=== PATIENT | female | born 1980 | race Caucasian/White ===

== ENCOUNTER 2024-08-25 06:09 | Observation (INO) ==
--- NOTE | 2024-08-09 13:00 | PAT Medication Instructions ---
Medication Instructions Date of Service August 09, 2024 Home Medications Probiotic 1 cap PO QAM ascorbic acid (vitamin C) 500 mg tablet (Vitamin C) 500 mg PO QAM fexofenadine 180 mg tablet 180 mg PO QAM montelukast 10 mg tablet (Singulair) 10 mg PO HS pantoprazole 40 mg tablet,delayed release (Protonix) 40 mg PO HS vitamin B complex 1 tab PO QAM DO NOT take the morning of surgery Probiotic 1 cap PO QAM ascorbic acid (vitamin C) 500 mg tablet (Vitamin C) 500 mg PO QAM fexofenadine 180 mg tablet 180 mg PO QAM vitamin B complex 1 tab PO QAM NOTHING TO EAT OR DRINK AFTER MIDNIGHT Take evening before surgery montelukast 10 mg tablet (Singulair) 10 mg PO HS pantoprazole 40 mg tablet,delayed release (Protonix) 40 mg PO HS Other Notes If you have any questions please call us at [phone] or [phone] or [phone] or [phone]
--- NOTE | 2024-08-11 11:00 | Anesthesiology Consultation ---
Date of Service August 11, 2024 Assessment & Plan (1) Encounter for pre-operative examination: - scop patch ordered for DOS. Chart Review Chart Review: Acceptable Risk for Surgery and Patient seen in Pre Admission Testing Teaching & Discussion Pre-Anesthesia Teaching/Discussion Notes: Instructed NPO after midnight before surgery, except medications with 15 cc of water. Medication instructions provided according to the PAT guidelines. History Surgery Operation Date: 08/25/24 12:05 Proposed Procedures p Anterior Cervical Discectomy and Fusion C5-C7, with Spinal Cord Monitoring - Rivera Patino DO Height/Weight Height: 5 ft 10 in Weight: 69.1 kg Allergies Allergy/AdvReac Type Severity Reaction Status Date / Time No Known Allergies Allergy Verified 08/08/24 10:01 Medications Home Medications Medication Instructions Recorded Confirmed Last Taken Probiotic 1 cap PO QAM 08/08/24 08/08/24 Unknown ascorbic acid (vitamin C) 500 mg 500 mg PO QAM 08/08/24 08/08/24 Unknown tablet (Vitamin C) fexofenadine 180 mg tablet 180 mg PO QAM 08/08/24 08/08/24 Unknown montelukast 10 mg tablet 10 mg PO HS 08/08/24 08/08/24 Unknown (Singulair) pantoprazole 40 mg tablet,delayed 40 mg PO HS 08/08/24 08/08/24 Unknown release (Protonix) vitamin B complex 1 tab PO QAM 08/08/24 08/08/24 Unknown methocarbamol 500 mg tablet 500 mg PO PRN Pain 08/11/24 Unknown Additional Notes: Patient was advised she can continue methocarbamol prn. She denied any additional questions, concerns or medications. Past Medical History Medical History (Updated 08/11/24 @ 11:09 by Yumiko Singh PA-C) Environmental and seasonal allergies GERD (gastroesophageal reflux disease) controlled, stable per pt History of anemia no current issues Nausea and vomiting after administration of anesthetic agent has had scop patch and IV medication with good benefit, denies adverse effects Patient denies h/o stroke, seizures, heart attack, heart failure, DM, HTN, blood clots/DVTs or blood transfusions. Exercise / Class Metabolic Activity II 4-5 Yardwork/Stairs/Walk up hill (denies chest discomfort or shortness of breath with one flight of stairs) Past Surgical History Surgical History History of endometrial ablation History of rhinoplasty History of tonsillectomy and adenoidectomy Hx of bilateral salpingectomy [place] teeth removed Past Anesthesia History No Hx of Anesthesia Complications and No Family Hx of Anesthesia Complications History of PONV History of PONV (has scop patch with IV medication with good management) and Hx of Motion Sickness Social History Smoking Status: Former smoker Do You Dip or Chew Tobacco: No Smoking End Date: 20 years ago, only occasional/socially Hx Alcohol Use: Yes Alcohol type: beer and other alcohol intake frequency: a few times a month Hx Substance Use: No substance use type: does not use Review of Systems Patient denies chest pain, shortness of breath, dyspnea on exertion, snoring, witnessed apneas, fever, chills, cough, wheezing, or palpitations. Physical Exam Vital Signs Vitals BP 135/92 P 69 TEMP 98.1 SP02 98% on RA RESP 18 Physical Patient resting comfortably in chair in no acute distress, alert and oriented, responding appropriately throughout visit Full cervical extension range of motion without pain TMD 3.5 finger breadths Mallampati Score 2 Dentition: intact, denies chipped or loose teeth, caps/crowns, implants or bridges Lungs: normal respiratory effort. Good air movement, clear throughout to auscultation, no adventitious breath sounds Cardiac: regular rate and rhythm, no murmurs noted Carotid arteries: negative bruit bilat Lab Results Anesthesia Preop Results Results Anesthesia Widget: WBC 4.53 K/ul (4.8-10.8) L 08/11/24 Hgb 13.4 g/dl (12.0-16.0) 08/11/24 Hct 39.7 % (37.0-47.0) 08/11/24 Plt 277 K/uL (130-400) 08/11/24 Na 136 mmol/L (136-145) 08/11/24 K 4.0 mmol/L (3.5-5.1) 08/11/24 Cl 103 mmol/L (98-107) 08/11/24 CO2 28 mmol/L (21-32) 08/11/24 BUN 9 mg/dl (6-23) 08/11/24 Creat 0.84 mg/dl (0.6-1.2) 08/11/24 Glucose Level 91 mg/dl (70-99(Fasting)) 08/11/24 PT 10.6 Seconds (9.0-12.0) 08/11/24 PTT 28 Seconds (21-31) 08/11/24 INR 1.0 (0.9-1.1) 08/11/24 Urine Color Yellow 08/11/24 Urine Appearance Clear (Clear) 08/11/24 Urine pH 6.5 (4.5-7.5) 08/11/24 Urine Specific [place] 1.011 (1.000-1.030) 08/11/24 Urine Protein Negative (Negative) 08/11/24 Urine Glucose (UA) Negative (Negative) 08/11/24 Urine Ketones Negative (Negative) 08/11/24 Urine Blood 1+ (Negative) H 08/11/24 Urine Nitrite Negative (Negative) 08/11/24 Urine Bilirubin Negative (Negative) 08/11/24 Urine Urobilinogen Negative (Negative) 08/11/24 Urine Leukocyte Esterase Negative (Negative) 08/11/24 Urine WBC (Auto) 0-5 /hpf (0-5) 08/11/24 Urine RBC (Auto) 3-5 /hpf (0-2) H 08/11/24 Urine Hyaline Casts (Auto) 0-2 /lpf (0-2) 08/11/24 Urine Epithelial Cells (Auto) 0-2 /hpf (0-2) 08/11/24 Urine Bacteria (Auto) 1+ (None Seen) H 08/11/24 Blood Type B Positive 08/11/24 Antibody Screen NEGATIVE 08/11/24 Testing Laboratory Results Surgeon's office made aware of abnormal UA. Electrocardiogram Date: 08/11/24 Sinus rhythm with short NE, rate 69 bpm Chest X-Ray Date: 08/11/24 No acute process.
[2024-08-25] MEDS ORDERED: ROCURONIUM BROMIDE 10 MG/ML 5 ML VIAL IV ONE (06:56)
[2024-08-25] MEDS ORDERED: ONDANSETRON INJ 2 MG/ML 2 ML VIAL ONE (06:56)
[2024-08-25] MEDS ORDERED: LIDOCAINE 2% 2 ML VIAL/AMP(20MG/ML) INFIL ONE (06:56)
[2024-08-25] MEDS ORDERED: DEXAMETHASONE SOD INJ 4 MG/ML VIAL ONE (06:56)
[2024-08-25] MEDS ORDERED: PROPOFOL IV EMULSION 10 MG/ML 100 ML VIAL IV ONE (06:56)
[2024-08-25] MEDS ORDERED: KETOROLAC 30 MG/ML VIAL ONE (06:56)
[2024-08-25] MEDS ORDERED: fentaNYL citrate PF 100 MCG/2 ML VIAL ONE (06:56)
[2024-08-25] MEDS ORDERED: SUGAMMADEX SODIUM 200 MG/2 ML VIAL IV ONE (06:56)
[2024-08-25] MEDS ORDERED: MIDAZOLAM HCL 1 MG/ML 2ML VIAL ONE (06:57)
[2024-08-25] MEDS ORDERED: PROPOFOL IV EMULSION 10 MG/ML 20 ML VIAL IV ONE ×2 (06:58→08:37)
[2024-08-25] MEDS ORDERED: ePHEDrine sulfate 50 MG/ML AMP IV PRN (07:24)
[2024-08-25] MEDS ORDERED: ATROPINE SULFATE 0.1 MG/ML 10ML SYR IV PRN (07:24)
[2024-08-25] MEDS: GABAPENTIN 900 MG DOSE PO SCH (07:26)
[2024-08-25] MEDS: LR 60ML/HR IV SCH (07:26)
[2024-08-25] MEDS: LR 15ML/HR IV SCH (07:26)
[2024-08-25] MEDS: ACETAMINOPHEN 500 MG TAB PO SCH (07:27)
[2024-08-25] MEDS: CeleBREX 200 MG CAP PO SCH (07:27)
[2024-08-25] MEDS: SCOPOLAMINE 1 MG/72 HR TDSY PATCH TD ONE (07:33)
--- NOTE | 2024-08-25 07:44 | History & Physical Bridge Note ---
Date of Service August 25, 2024 History & Physical Bridge Note I have examined the patient, reviewed the History & Physical and in the interval since the performance of the History & Physical I have noted the following changes of clinical significance: no changes noted
--- NOTE | 2024-08-25 07:46 | History & Physical Report ---
Date of Service August 25, 2024 Assessment & Plan (1) Herniation of cervical intervertebral disc with radiculopathy: Plan: Anterior cervical discectomy and fusion C5-C7 History of Present Illness Chief Complaint: Neck and arm pain Primary Care Provider: Anya Rosas DO This is a 44-year-old female presents for chronic persistent neck and arm pain a failed course of nonoperative care she is here for surgical intervention. Allergies Allergy/AdvReac Type Severity Reaction Status Date / Time No Known Allergies Allergy Verified 08/25/24 06:52 Home Medications Medication Instructions Recorded Confirmed Type Probiotic 1 cap PO QAM 08/08/24 08/25/24 History ascorbic acid (vitamin C) 500 mg 500 mg PO QAM 08/08/24 08/25/24 History tablet (Vitamin C) fexofenadine 180 mg tablet 180 mg PO QAM 08/08/24 08/25/24 History montelukast 10 mg tablet 10 mg PO HS 08/08/24 08/25/24 History (Singulair) pantoprazole 40 mg tablet,delayed 40 mg PO HS 08/08/24 08/25/24 History release (Protonix) vitamin B complex 1 tab PO QAM 08/08/24 08/25/24 History methocarbamol 500 mg tablet 500 mg PO DAILY PRN Pain 08/11/24 08/25/24 History cholecalciferol (vitamin D3) 125 125 mcg PO DAILY 08/25/24 08/25/24 History mcg (5,000 unit) tablet (Vitamin D3) Past Med/Surg History Problem List (Updated 08/25/24 @ 07:46 by Rivera Patino DO) Herniation of cervical intervertebral disc with radiculopathy Encounter for pre-operative examination Medical History (Updated 08/25/24 @ 07:46 by Rivera Patino DO) Environmental and seasonal allergies Nausea and vomiting after administration of anesthetic agent has had scop patch and IV medication with good benefit, denies adverse effects History of anemia no current issues GERD (gastroesophageal reflux disease) controlled, stable per pt Surgical History History of endometrial ablation Hx of bilateral salpingectomy History of rhinoplasty [place] teeth removed History of tonsillectomy and adenoidectomy Social History Smoking Status: Former smoker Smoking End Date: 20 years ago, only occasional/socially; Second Hand Exposure: No; Do You Dip or Chew Tobacco: No; Tobacco Cessation Education Requested by Patient: No Hx Alcohol Use: Yes Alcohol type: beer and other Hx Substance Use: No Preferred Language: French Communication Ability: Effective Client Services Administrator Required: No Beliefs That Will Affect Care: None Current Living Situation: Spouse and Family Other Information That Helps Us Care for You: No Feels Safe at Home: Yes Safety Concerns: Feels Safe At This Time Assistive Devices: Glasses Assistive Devices Comment: reading glasses prn Physical Exam Physical Exam: Patient is alert and oriented Heart regular in rhythm Lungs clear Results & Data Results & Data Vital Signs (Past 12 Hours) Vital Signs Temp Pulse Resp BP Pulse Ox O2 Del Method 08/25/24 06:56 36.6 C 80 18 151/97 H 98 Room Air
[2024-08-25] MEDS: ceFAZolin 2000MG 2,000 MG/15 ML SYR IV SCH (07:55)
[2024-08-25] MEDS: FLOSEAL HEMOSTATIC MATRIX 10ML TOP ONE (09:13)
[2024-08-25] MEDS: ceFAZolin 330 MG/ML 1 GM VIAL ONE (09:15)
--- NOTE | 2024-08-25 09:23 | Operative Report ---
Post Operative Report Pre & Post Diagnosis Operation Date: 08/25/24 07:45 Pre-Op Diagnosis: Herniation of cervical intervertebral disc with radiculopathy Post-Op Diagnosis: Herniation of cervical intervertebral disc with radiculopathy I identified the patient and participated in the time-out.: Yes Procedure Operation Date: 08/25/24 07:45 Actual Procedures #1 anterior cervical discectomy with bilateral foraminotomies C5-C6 C6-C7. #2 anterior cervical arthrodesis C5-C6 C6-C7. #3 placement of Spira 7 mm cage at C5-C6 and 9 mm cage at C6-C7 both filled with Oxyzyme bone graft. #4 placement of the Z plate and screws from C5 to see 7. Surgeon Rivera Patino, DO Call Center Assistant Malik Lamas Estimated Blood Loss 10 Findings Consistent with Post-Op Diagnosis Specimens None Indications This is a 44-year-old female with presents publish diagnosis of the failing course of nonoperative care is here for surgical invention. Description of Procedure Patient was met with identified informed consent obtained. Patient was then taken to the operative suite underwent intubation placed in supine position on the Bret table the head [place] hogshead wrecker. All bony prominences well- padded eyes inspected to ensure no external pressure placed upon them. This point the anterior cervical spine was prepped and draped no sterile fashion. The assistance of fluoroscopy identified the C6 vertebral body and a transverse incision was placed on the right anterior aspect of the cervical spine overlying the region. Blunt dissection with assistance of bipolar electrocautery was performed down to and exposing the anterior cervical spine from C5-C7. Self- retaining tractors placed. Then formed a complete discectomy of C5-C6 out to the uncovertebral notch bilaterally. [place] distractor pins utilized to assist in visualization. Removed all posterior annular fibers longitudinal limit bilateral foraminotomies performed. Endplates burred to subcortical bleeding bone and a 7 mm spiral cage filled with os design bone graft tapped in position the distracting apparatus was removed and I proceeded to C6-C7. Again complete discectomy performed up to the uncovertebral was bilaterally. [place] distracting pins again utilized. Removed all posterior annular fibers longitudinal ligament bilateral foraminotomies performed. Endplates burred to subcortical bleeding bone and 9 mm spiral cage filled with os designed tapped in position. Distracting apparatus was removed and a Z plate applied from C5-C7 with fluoroscopic visualization. The incision was then copiously irrigated explored to ensure no damage to surrounding structures remaining bleeding. 10 round DENISE drain inserted. The incision was then closed with 2 Vicryl in the fascia 4 Monocryl for final skin closure. Steri-Strips sterile dressing placed. Patient waken taken PACU stable condition. Please note spinal cord monitoring was utilized at the procedure no changes noted. Malik Lamas was present out the entire surgery and while the patient positioning complex portion of the surgery and final skin closure. Im ordering 10 grams of Triple [place] Collagen Powder ([employer] A6010) to treat an incision wound that was caused by a spine procedure. The incision is approximately 2 cm(W) x 4 cm(L) into the joint (D) in size and is a full thickness wound. Triple [place] collagen comes in 1 gram packets so 10 packets were ordered. Given the size of the wound, with light to moderate exudate I chose to order a 10 day supply. The patient will be provided instructions for proper application of the collagen wound kit. The patient will be asked to apply the collagen powder daily and then cover it with sterile dress ings dispensed. Collagen was selected as I expect the collagen to attract monocytes and fibroblasts, act as a sacrificial substrate for MMPs, and ultimately proved a matrix for tissue and vessel growth. The collagen will act as a primary dressing in this scenario. It is medically necessary for proper healing of these wounds to improve bioavailability and contact with each wound surface, this is also to help prevent infection of wounds and promote healing ultimately leading to a better healing outcome and limit the risk of infection. I attest to the content of the Intraoperative Record and any orders documented therein. Any exceptions are noted below.
[2024-08-25] MEDS: HYDROmorphone INJ 2 MG/ML SYR/VIAL IV PRN (09:50)
--- NOTE | 2024-08-25 10:30 | Fluoroscopy Report ---
FL cervical 2-3V CLINICAL HISTORY: C5-C7 ACDF COMPARISON STUDY: None FLUOROSCOPY TIME: 13.2 seconds FLUOROSCOPY IMAGES: 2 EXPOSURE DOSE: 0.91 mGy FINDINGS: Anterior plate and screw fusion with discectomy at C5-C7. The hardware appears intact. Endo tracheal tube with surgical drainage catheter. No unexpected opaque foreign bodies identified. IMPRESSION: Fluoroscopic assistance as above. ACT 112: Negative or not required by law. Electronically signed by: Antonio Leija M.D. 08/25/2024 10:29 AM
--- NOTE | 2024-08-25 11:11 | Anesthesiology Progress Note ---
Date of Service August 25, 2024 Anesthesia Post Procedure Vital Signs Vital Signs: Temp Pulse Pulse Resp BP BP Pulse Ox 08/25/24 10:50 36.8 C 95 H 16 126/68 96 08/25/24 10:40 78 21 117/75 95 08/25/24 10:30 78 15 121/81 95 08/25/24 10:20 78 17 125/84 95 08/25/24 10:10 81 16 125/85 96 08/25/24 10:00 85 20 135/82 100 08/25/24 09:50 89 23 138/95 100 08/25/24 09:41 36.0 C L 93 H 13 128/88 100 08/25/24 06:56 36.6 C 80 18 151/97 H 98 O2 Del Method O2 Flow Rate 08/25/24 10:50 Room Air 08/25/24 10:40 Room Air 08/25/24 10:30 Room Air 08/25/24 10:20 Room Air 08/25/24 10:10 Room Air 08/25/24 10:00 Oxymask 6 08/25/24 09:50 Oxymask 6 08/25/24 09:41 Oxymask 6 08/25/24 06:56 Room Air Pain Intensity Left Neck: Pain Intensity: 4 Neck: Pain Intensity: 2 Transfer of Care Handoff Completed per policy Notes Mental Status: alert / awake / arousable Patient Amnestic to Procedure: Yes Nausea / Vomiting: adequately controlled Pain: adequately controlled Airway Patency, RR, SpO2: stable & adequate BP & HR: stable & adequate Hydration State: stable & adequate Anesthetic Complications: no major complications apparent
[2024-08-25] MEDS ORDERED: LORazepam 2 MG/1 ML VIAL IV PRN (12:23)
[2024-08-25] MEDS ORDERED: traMADol HCL 50 MG TABLET PO PRN (12:23)
[2024-08-25] MEDS ORDERED: DO NOT ADMINISTER FLU VACCINE PRN (12:23)
[2024-08-25] MEDS ORDERED: PROMETHAZINE 12.5 MG/50.5 ML BAG IV PRN (12:23)
[2024-08-25] MEDS ORDERED: NALOXONE HCL 0.4 MG/1 ML VIAL/CARP IV PRN (12:23)
[2024-08-25] MEDS ORDERED: ONDANSETRON INJ 2 MG/ML 2 ML VIAL IV PRN (12:23)
[2024-08-25] MEDS ORDERED: DO NOT ADMINISTER PNEUMOCOCCAL VACCINE PRN (12:23)
[2024-08-25] MEDS ORDERED: bisacodyL 10 MG SUPP PR PRN (12:23)
[2024-08-25] MEDS ORDERED: diphenhydrAMINE Capsule 25 MG CAP PO PRN (12:23)
[2024-08-25] MEDS ORDERED: METOCLOPRAMIDE HCL INJ 5 MG/ML 2 ML VIAL IV PRN (12:23)
[2024-08-25] MEDS ORDERED: hydrOXYzine HCl 25 MG TAB PO PRN (12:23)
[2024-08-25] MEDS ORDERED: FAMOTIDINE 20 MG TAB PO PRN (12:23)
[2024-08-25] MEDS ORDERED: ACETAMINOPHEN 500 MG TAB PO PRN (12:23)
[2024-08-25] MEDS ORDERED: SOD PHOSPHATE/SOD BIPHOSPHATE ENEMA 132 ML BTL PR PRN (12:23)
[2024-08-25] MEDS ORDERED: ONDANSETRON 4 MG OD TAB PO PRN (12:23)
[2024-08-25] MEDS ORDERED: dexAMETHasone 8 MG in SYRINGE 0 ML IV PRN (12:23)
[2024-08-25] MEDS ORDERED: ALUMINUM/MAGNESIUM SUSP 30 ML UDC PO PRN (12:23)
[2024-08-25] MEDS ORDERED: RACEPINEPHRINE 2.25% NEBU SOLN 0.5 ML VIAL INH PRN (12:23)
[2024-08-25] MEDS ORDERED: MAGNESIUM HYDROXIDE SUSP 30 ML UDC PO PRN (12:23)
[2024-08-25] MEDS: LACTATED RINGER'S 1,000 ML IV SCH (13:23)
[2024-08-25] MEDS: LORazepam 0.5 MG TAB PO PRN (15:08)
[2024-08-25] MEDS: HYDROmorphone INJ 0.5 MG/0.5 ML SYR IV PRN (16:25)
[2024-08-25] MEDS: ceFAZolin 1000MG 1,000 MG/7.5 ML SYR IV SCH (17:32)
[2024-08-25] MEDS: HYDROmorphone INJ 1 MG/ML SYRINGE IV PRN (19:31)
[2024-08-25] MEDS: PANTOprazole 40 MG TAB PO SCH (20:11)
[2024-08-25] MEDS: DOCUSATE SODIUM/SENNA 50/8.6MG TAB PO SCH (20:11)
[2024-08-25] MEDS: MONTELUKAST SODIUM 10 MG TABLET PO SCH (20:11)
[2024-08-25] MEDS: oxyCODONE HCL IR 5 MG TAB (IMMEDIATE RELEASE) PO PRN (21:26)
[2024-08-25] MEDS ORDERED: Nursing to Pharmacy Communication SCH (21:45)
[2024-08-26] MEDS: ACETAMINOPHEN 1,000 MG/100 ML VIAL IV PRN (00:16)
[2024-08-26] MEDS: POLYETHYLENE (MIRALAX) 17 GM PACK PO SCH (05:54)
[2024-08-26] MEDS: CHOLECALCIFEROL 125 MCG (5,000 UNITS) TAB PO SCH (08:00)
[2024-08-26] MEDS: FEXOFENADINE HCL 180 MG TAB PO SCH (08:00)
[2024-08-26] MEDS: VITAMIN B COMPLEX TAB PO SCH (08:00)
[2024-08-26] MEDS: ADVANCED PROBIOTIC 625 MG CAPSULE PO SCH (08:00)
[2024-08-26] MEDS: ASCORBIC ACID 500 MG TAB PO SCH (08:00)
[2024-08-26] MEDS: dexAMETHasone 6 MG in SYRINGE 0 ML IV SCH (08:02)
[2024-08-26 08:46] VITALS: BP 150/100; TEMP 98.2
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
[2024-08-26] MEDS: GABAPENTIN 300 MG CAP PO SCH (10:01)
[2024-08-26 11:32] VITALS: PULSE 78; RESP 18; O2SAT 96
== END 2024-08-26 14:45 | disposition home or self-care (01) ==
LOC: PACUINP 06:09 → ASU 06:09 → 3E 12:50